=== PATIENT | female | born 1975 | race Two or more races ===

== ENCOUNTER 2023-08-10 08:48 | Outpatient (CLI) | payer OTHER | END 2023-08-10 08:50 | disposition home or self-care (01) | LOC: LAB 08:48 | PROVIDERS: ATTEND General Practice | DX: E78.2 Mixed hyperlipidemia (principal); R30.0 Dysuria; E03.9 Hypothyroidism, unspecified; E11.69 Type 2 diabetes mellitus with other specified complication; E55.9 Vitamin D deficiency, unspecified; D64.9 Anemia, unspecified; R74.01 Elevation of levels of liver transaminase levels; N63.10 Unspecified lump in the right breast, unspecified quadrant; R73.01 Impaired fasting glucose; E60 Dietary zinc deficiency; E63.9 Nutritional deficiency, unspecified ==